=== PATIENT | female | born 1960 | race African-American/Black ===

== ENCOUNTER → 2016-11-27 | Outpatient (CLI) | payer BC ==
[~2016-11-27] MED LIST: MAXZIDE 75/50 T1 TA1 PO; MAXZIDE 75/50 T1 TAB PO; VICODIN 5/1 TAB 5/50 PO; ZOCOR20 MG PO
--- NOTE | ~2016-11-27 | MY11 ---
[facility] A Service of [facility] RADIOLOGY TEXT RESULTS PATIENT: RAVI ATKINS LOCATION: [facility] : 62 UNIT #: [id number] AGE: [address]: Geraldo Craven MD SEX: F ORDER DR: [id number] [facility] [address] [place], [place] [address] [id number] O MR#: [id number] Acc #: [id number] NAME: RAVI ATKINS. : 1960 SEX: F STUDY DATE/TIME: 11/27/2016 15:12 UNIT: [facility] ROOM: STUDY DESCRIPTION: MY Mammogram Screening Dig Dev Attending Physician: Geraldo Craven M.D. Referring Physician: Geraldo Craven M.D. Ordering Physician: Geraldo Craven M.D. Primary Care Physician: Geraldo Craven M.D. MEDICAL IMAGING REPORT This report is preliminary unless electronic signature is present EXAM Digital screening mammogram 11/27/2016 [facility] HISTORY 56-year-old woman positive family history, sister age 57, grandmother age 60. Annual screen. Comparison mammograms date to 07/19/2005 with most recent 11/14/2015 Digital imaging of each breast was completed utilizing a two-view examination of each breast in craniocaudal and mediolateral-oblique projections. Review and interpretation of digital mammograms include a second review in conjunction with FDA-approved CAD device. There is a normal parenchymal presentation bilaterally consistent with the patient's age. There are no breast masses imaged and no parenchymal asymmetry is visualized. There are no suspicious microcalcifications and I see no focal architectural disturbance. IMPRESSION Negative screening digital mammogram. One-year followup recommended. Patients over the age of 40 are entered into a reminder system with target due date for the next mammogram. A result letter will also be sent to the patient. BIRADS: 1 Negative ADDENDUM Breast parenchyma is fatty replaced Dictated by... Jones Cordero M.D. [facility] A Service of [facility] RADIOLOGY TEXT RESULTS PATIENT: RAVI ATKINS LOCATION: [facility] #: [id number] : 62 UNIT #: [id number] AGE: [address]: Geraldo Craven MD SEX: F ORDER DR: THIS IS AN ELECTRONICALLY VERIFIED REPORT Jones Cordero M.D. at 11/28/2016 8:08 AM Rusty TD: 11/27/2016 16:51 JOB #: [id number] MEDICAL IMAGING REPORT Page 1 of 1 COPY
== END | disposition home or self-care (01) ==
LOC: CWCC 15:00
DX: Z12.31 Encounter for screening mammogram for malignant neoplasm of breast (principal); Z80.3 Family history of malignant neoplasm of breast; R92.8 Other abnormal and inconclusive findings on diagnostic imaging of breast
CPT/HCPCS: G0202